=== PATIENT | male | born 1980 | race Caucasian/White ===

== ENCOUNTER → 2021-03-29 | Day surgery (SDC) | payer OTHER ==
[~2021-03-29] MED LIST: ZOLOFT50 MG PO
== END | disposition home or self-care (01) ==
LOC: OR 03-28 09:00
DX: D12.3 Benign neoplasm of transverse colon (principal); F17.210 Nicotine dependence, cigarettes, uncomplicated; Z79.899 Other long term (current) drug therapy; Z20.822 Contact with and (suspected) exposure to COVID-19
CPT/HCPCS: J2001; J2250; J2704; J7040